=== PATIENT | female | born 1960 | race Two or more races ===

== ENCOUNTER 2023-12-26 08:27 | Day surgery (SDC) | payer OTHER, SELFPAY ==
[2023-12-17 13:10] VITALS: BMI 31.3
[2023-12-17 14:00] LABS: INR 2.36; PT 25.7 Sec (11.4-14.6)
[2023-12-17 14:04] LABS: % Basophils 0.9 % (0-2); % Eosinophils 5.6 % (0-6); % Immature Granulocytes 0.4 % (0-0.5); % Lymphocytes 18.7 % (20.5-51.1); % Monocytes 11.5 % (1.7-9.3); % Neutrophils 62.9 % (42.2-75.2); Absolute Basophils 0.1 10^3/uL (0-0.2); Absolute Eosinophils 0.5 10^3/uL (0-0.7); Absolute Lymphocytes 1.8 10^3/uL (1.2-3.4); Absolute Monocytes 1.1 10^3/uL (0.1-0.6); Hematocrit 34.1 % (37.0-47.0); Hemoglobin 11.7 g/dL (12.0-16.0); Mean Corp Hgb Conc. 34.3 g/dL (33.0-37.0); Mean Corpuscular Hgb 26.8 pg (27.0-31.0); Mean Platelet Volume 11.8 fL (7.4-10.4); Nucleated Red Blood Cells % 0 %; Platelet Count 232 10^3/uL (130-400); Red Blood Cell Count 4.37 10^6/uL (4.20-5.40); Red Cell Dist. Width 13.6 % (11.5-14.5); White Blood Cell Count 9.5 10^3/uL (4.8-10.8)
[2023-12-17 14:10] LABS: ALT (SGPT) 14 U/L (0-35); AST (SGOT) 25 U/L (14-36); Albumin 4.3 g/dl (3.5-5.0); Alkaline Phosphatase 96 U/L (38-126); Blood Urea Nitrogen 20 mg/dl (7-17); Calcium 10.2 mg/dl (8.4-10.2); Carbon Dioxide 26 mmol/L (22-30); Chloride 91 mmol/L (98-107); Estimated Creatinine Clearance 38 ml/min; Glucose 95 mg/dl (70-99); Magnesium 1.5 mg/dl (1.6-2.3); Potassium 3.6 mmol/L (3.5-5.1); Sodium 126 mmol/L (135-145); Total Bilirubin 0.9 mg/dl (0.2-1.3); Total Protein 7.3 g/dl (6.3-8.2); eGFR 46.21
[2023-12-26] VITALS (11 sets, daily range): BP systolic 106–139; BP diastolic 68–85; BMI 31.6
[2023-12-26 14:03] LABS: ACT-LR - POC 327 Seconds (116-155)
[2023-12-26 14:24] LABS: ACT-LR - POC 287 Seconds (116-155)
--- NOTE | 2023-12-26 14:55 | ITS.CL.ABL ---
[employer] - Ablation
Ablation
Procedure Report:
ELECTROPHYSIOLOGY ABLATION STUDY
�
DATE:: December 26, 2023���������������������������� REFERRING: Dr. Erick Allison
�
INDICATION: Persistent supraventricular tachycardia in the form of atrial fibrillation.� Prior pulmonary vein isolation and extrapulmonary vein lesions in January 2023 who presents with recurrent atrial fibrillation.
�
HISTORY: See H and P.� Of note the patient has severe biatrial enlargement as well as low voltage QRS on the ECG
�
ANTIARRHYTHMIC DRUG: Metoprolol
�
PRE-PROCEDURE YVONNE: No atrial thrombus on intracardiac ultrasound
�
PRESENTING RHYTHM: Atrial fibrillation
�
'TIME-OUT':� called and confirmed.
�
SEDATION/ANESTHESIA:� provided via the anesthesia department using general anesthesia (LMA).
�
INTRAVENOUS/ARTERIAL ACCESS:
Right femoral venous - 8Fr
Left femoral venous - 8 Fr, 6 Fr
Vascade vascular closure was utilized.
Ultrasound guidance for bilateral femoral vein access was utilized by me to obtain access with demonstration of normal anatomy
CHADS-VASC Score:
�
HAS-Bled Score
�
PROCEDURE:�
1.� A decapolar CS catheter was placed within the CS for mapping and pacing.� This was also used as the reference catheter for the 3-D map.
�
2. The intracardiac ultrasound catheter was positioned in the RA to identify the FO for targeting of transseptal puncture, assist� in identification of the pulmonary vein ostia, monitoring pre and post ablation pulmonary vein flow velocities,
monitoring for 'bubble' formation during RF application as a sign of thermal injury,� and to monitor for pericardial effusion during mapping and ablation procedure.�� Left atrial size, LV ejection fraction, and pulmonary vein flows were monitored
pre and post ablation procedure. The other valves were inspected and found to be free of significant regurgitation or stenosis.
�
3.� Half of the calculated heparin bolus was administered prior to the first transeptal puncture.� Transseptal puncture was performed to diagnose RA and LA pressure so that safety of LA mapping and ablation could be further assessed, and to access
the left atrium and pulmonary veins for mapping and ablation.� This entailed advancing an 10 Polish Contour sheath and with dilator apparatus into the superior vena cava and withdrawing both (monitoring intracardiac ultrasound, fluoroscopy and tip
pressure) with the tip oriented toward the atrial septum.� The fossa ovalis was engaged (indicated by sudden displacement of the sheath tip as well as tenting of the fossa seen on intracardiac ultrasound).� Left atrial access required a pass with
the Brock[place]rough needle extended.� Left atrial catheter position was confirmed by pressure monitoring (RA mean pressure 8 mm Hg and LA mean presure 14 mm Hg), LA saturation (99%),� as well as fluoroscopy.� The sheath was advanced over the dilator
and positioned in the left atrium.� � The remainder of the calculated heparin bolus was administered and heparin was
infused to maintain ACT at 300 -350 seconds throughout the case.
�
4.� RA pacing was performed via the proximal decapolar poles and LA pacing was performed via the distal decapolr poles.
�
5. A quadrapolar catheter was first positioned at the His position for His Bundle recording which was tagged via the 3-D Navex sytem, and then passed to the RVA for RV pacing and recording.
�
6. The multipolar catheter and pulse select PFA catheter were placed in each of the LIPV, LSPV, RSPV and the RIPV.��
�
7.� Next, a 3-D map was created using Navex.�� A 3-D reconstructed CT image was compared to the 3-D Navex map to assist in anatomic interpretation, mapping and ablation.� The CT image and the NavX image were fused.
�
8. The pulmonary veins were isolated at baseline. A total of 68 lesions was given to the left atrial posterior wall, the interatrial septum, as well as antral tissue in each of the 4 pulmonary veins. Diffuse low voltage was noted in the left
atrium and patchy scarring was also noted in the lateral SVC RA region, mid aileen, and the septal cavotricuspid isthmus. PFA rendered the posterior wall interatrial septum and pulmonary veins isolated with entrance block. Patient was cardioverted
to sinus rhythm with relative electrical silence in the mid to posterior atrium involving the pulmonary veins, roof, and floor. The patient had recurrent atrial fibrillation with multifocal PACs, short bursts of atrial couplets and triplets at
multiple cycle lengths. We mapped the right atrium demonstrating patchy scar as above but without clear reproducible trigger. The patient maintained sinus rhythm after a failed 200 J shock and a second 300 J shock restored sinus rhythm durably.
�
TOTAL FLOURO TIME: 16.7 minutes 263 mGy
�
TOTAL RF DURATION: 0 minutes
�
REVERSAL OF HEPARIN: 35 mg of protamine, slow IV administration
�
COMPLICATIONS:�
None
Intracardiac US shows no pericardial effusion post ablation.
�
SUMMARY:��
Complex left atrial mapping and ablation.
Left atrial posterior wall and interatrial septal isolation as well as lesions given to the antrum of the left and right pulmonary veins. Electrical silence in the left atrial posterior wall, pulmonary veins and much of the mid to posterior left
atrium was achieved. The patient was noted to have patchy scar in the right atrium (without prior ablation) as well as severe biatrial enlargement despite a low voltage QRS and mild LVH. Multifocal PACs and short bursts of atrial tachycardia were
noted post cardioversion with multiple separate sites and no further ablation was performed in the right atrium.
�
RECOMMENDATIONS:
1. Out of bed and ambulate in 2 hours status post vascular closure and consider same-day discharge
2. Resume anticoagulation
3.� Add amiodarone at low-dose given the patient's patchy right atrial scar and diffuse low voltage in the left atrium
4.� I discussed with Dr. 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 He will also check TFTs and LFTs in 6 weeks after our personal communication.
�
Copy to: Dr. Erick Allison
�
--- NOTE | 2023-12-26 16:34 | W.PN.UPDATE ---
Update Note
Progress Note Update
63 yo female s/p redo PVI (same day). She denies cp, sob, jorje diet, EKG SR 1deg AVB, b/l groins VASCADE closure, no HT, soft. She will continue OAC Xarelto dose tonight at 930p. She will continue metoprolol and will add Amiodarone 200mg daily.
Activity restrictions reviewed. She will f/u Dr. Allison in 6-8 weeks. She should have f/u liver and thyroid testing in 6-8 weeks with amiodarone which Dr. Allison will order. She is for d/c home after 530p if groins stable and able to void.
SUMMARY:��
Complex left atrial mapping and ablation.
Left atrial posterior wall and interatrial septal isolation as well as lesions given to the antrum of the left and right pulmonary veins. Electrical silence in the left atrial posterior wall, pulmonary veins and much of the mid to posterior left
atrium was achieved. The patient was noted to have patchy scar in the right atrium (without prior ablation) as well as severe biatrial enlargement despite a low voltage QRS and mild LVH. Multifocal PACs and short bursts of atrial tachycardia were
noted post cardioversion with multiple separate sites and no further ablation was performed in the right atrium.
�
RECOMMENDATIONS:
1. Out of bed and ambulate in 2 hours status post vascular closure and consider same-day discharge
2. Resume anticoagulation
3.� Add amiodarone at low-dose given the patient's patchy right atrial scar and diffuse low voltage in the left atrium
4.� I discussed with Dr. 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 He will also check TFTs and LFTs in 6 weeks after our personal communication.
�
Copy to: Dr. Erick Allison
== END 2023-12-26 18:00 | disposition home or self-care (01) ==
LOC: CATH 08:27
PROVIDERS: ATTENDING PHYSICIAN Internal Medicine Cardiovascular Disease; FAMILY PHYSICIAN Family Medicine; OTHER PHYSICIAN Internal Medicine Cardiovascular Disease
DX: I48.19 Other persistent atrial fibrillation (principal); E78.5 Hyperlipidemia, unspecified; Z68.31 Body mass index [BMI] 31.0-31.9, adult; I13.0 Hypertensive heart and chronic kidney disease with heart failure and stage 1 through stage 4 chronic kidney disease, or unspecified chronic kidney disease; N18.30 Chronic kidney disease, stage 3 unspecified; Z79.01 Long term (current) use of anticoagulants; I47.19 Other supraventricular tachycardia; E03.9 Hypothyroidism, unspecified; E66.9 Obesity, unspecified; I50.9 Heart failure, unspecified; Z79.890 Hormone replacement therapy; J98.4 Other disorders of lung; Z79.899 Other long term (current) drug therapy
CPT/HCPCS: C1732; C1894; C1730; C1733; C1769; C1759; C1892; C1766; 36415; 76937; 80053; 83735; 85025; 85347; 85610; 86850; 86900; 86901; 93005; 93656; C1760